=== PATIENT | male | born 1950 | race Caucasian/White ===

== ENCOUNTER → 2024-07-18 | Outpatient (CLI) | payer OTHER, SELFPAY ==
--- NOTE | 2024-07-18 07:30 | PROSBIL_PTH ---
PATIENT: REGGIE VIZCAINOT #:[id number] LOC: [facility] U#:[id number] AGE/SX: 73/M ROOM: RE07/18/[address]: Dr. Kory Vance MD : 1950 BED: DIS: 07/18/2024 SPEC #: [id number] RECD: 07/18/24 14:50 STATUS: KYLEE RETyler #: [id number] SAUL: 07/18/24 07:[address]: Kory Vance DEPT: SURGICAL PATHOLOGY RECD BY: León Culp ENTERED: 07/18/24 15:15 SP TYPE: PROST BX OT DR: Lucy [facility] Phys Tissues: A - PROSTATE RIGHT B - PROSTATE RIGHT C - PROSTATE RIGHT D - PROSTATE LEFT E - PROSTATE LEFT F - PROSTATE LEFT Procedures: PROSTATE BX Immunohistochemical Stains HEADER OPERATION: Ultrasound guided prostate biopsy PRE-OP DIAGNOSIS: Elevated PSA, family history of malignant neoplasm of prostate TISSUE SUBMITTED: A - Right base, B - Right mid, C - Right apex, D - Left base, E - Left mid, F - Left apex MICROSCOPIC DIAGNOSIS A. Prostate, right base, biopsy: * Benign prostate tissue. B. Prostate, right mid, biopsy: * Benign prostate tissue. C. Prostate, right apex, biopsy: * Benign prostate tissue. D. Prostate, left base, biopsy: * Benign prostate tissue. E. Prostate, left mid, biopsy: * Benign prostate tissue. F. Prostate, left apex, biopsy: * Focal atypical small acinar proliferation, suspicious for adenocarcinoma. * IHC for [id number] supports the histologic impression. MICROSCOPIC DESCRIPTION Slides are reviewed. All matched controls reacted appropriately. These tests were developed and their performance characteristics determined by [facility]. They may not have been cleared or approved by the U.[place]. Food and Drug Administration. The FDA has determined that such clearance or approval is not necessary.? The above immunohistochemical/dualISH?markers are ordered and reviewed by the Pathologist. GROSS DESCRIPTION A. Received in formalin in a container labeled with the patient's name, date of , and #1 right prostate base are 2 white and wispy core biopsies of soft tissue measuring 0.9 x 0.1 cm and 1.2 x 0.1 cm. Submitted in toto in A1. B. Received in formalin in a container labeled with the patient's name, date of , and #2 right prostate mid are 2 white and wispy core biopsies of soft tissue measuring 1.4 x 0.1 cm and 2.0 x 0.1 cm. Submitted in toto in B1. C. Received in formalin in a container labeled with the patient's name, date of , and #3 right prostate apex are 3 white and wispy core biopsies of soft tissue ranging from 0.7 x 0.1 cm to 1.5 x 0.1 cm. Submitted in toto in C1. D. Received in formalin in a container labeled with the patient's name, date of , and #4 left prostate base are 2 white and wispy core biopsies of soft tissue measuring 1.0 x 0.1 cm and 2.0 x 0.1 cm. Submitted in toto in D1. E. Received in formalin in a container labeled with the patient's name, date of , and #5 left prostate mid are 2 white and wispy core biopsies of soft tissue each measuring 1.7 x 0.1 cm. Submitted in toto in E1. F. Received in formalin in a container labeled with the patient's name, date of , and #6 left prostate apex are 2 white and wispy core biopsies of soft tissue each measuring 1.8 x 0.1 cm. Submitted in toto in F1. [facility] 07-18-2024 CPT:45693z3, 27020
== END | disposition home or self-care (01) ==
LOC: LABSPEC 14:59
PROVIDERS: Referring Provider Urology; Visit Provider Urology
DX: R97.20 Elevated prostate specific antigen [PSA] (principal); Z80.42 Family history of malignant neoplasm of prostate
CPT/HCPCS: 88305; 88342; G0416

== ENCOUNTER → 2024-10-21 | Outpatient (CLI) | payer SELFPAY, OTHER ==
--- NOTE | 2024-10-21 10:51 | MRI_ITS ---
EXAM: PELVIS W/WO CONTRAST 10/21/2024 CLINICAL HISTORY: ELEVATED PSA ANTIGEN. TECHNIQUE: Procedure Code: [id number] Modality: MR Procedure: PELVIS W/WO CONTRAST Multiplanar and multisequence images were obtained without and with intravenous gadolinium contrast. CONTRAST: Clariscan VOLUME: 17 mL COMPARISON: None FINDINGS: Image quality:Diagnostic PSA:22.7ng/mL Prostate size: 4 x 4.6 x 4.7cms Prostate volume: 42.39mL PSA density:0.535 ng/mL??? Prostate: Peripheral zone: Normal in signal. Bandlike T2 signal abnormalities without any restricted diffusion or abnormal pattern of enhancement. Transitional zone: Target lesion: Focal T2 hypointense mass with restricted diffusion involving the left transitional anatomy both anterior and posterior zones extending from the base to the apex and measuring 3.4 by 2.2 x 1.5 centimeters. Restricted diffusion with drop in signal on ADC map present. Equivocal enhancement of the lesion noted. PI-RADS: PI-RADS 5: very high (clinically significant cancer is highly likely to be present) Extra prostatic extension: Subtle T2 hyperintense nodule in the left cortex of the prostate with increase T2 signal on diffusion-weighted images with corresponding drop in signal on ADC map but no abnormal enhancement. This is concerning for extra prostatic extension of disease. Seminal vesicles: Normal. Neurovascular involvement: None. Lymphadenopathy: No lymphadenopathy. Bladder: Normal. Osseous structures: Normal. Gastrointestinal: Diverticulosis. No active diverticulitis. Soft tissues: There is a large left inguinal hernia containing loops of sigmoid colon. Diverticulosis noted. MRI/Pelvis W/WO Contrast IMPRESSION: 3.4 centimeter mass with involving the left transitional zone from base to apex with possible left prostatic extra capsular extension. No lymphadenopathy. No involvement of the neurovascular bundle. PI-RADS: PI-RADS 5: very high (clinically significant cancer is highly likely t o be present) Reading Location: [id number]
== END | disposition home or self-care (01) ==
PROVIDERS: PCP Student in an Organized Health Care Education/Training Program; Referring Provider Urology; Visit Provider Urology
DX: R97.20 Elevated prostate specific antigen [PSA] (principal)
CPT/HCPCS: 72197; A9575; A4216

== ENCOUNTER → 2024-11-28 | Outpatient (CLI) | payer OTHER, SELFPAY ==
--- NOTE | 2024-11-28 07:30 | PROSBIL_PTH ---
PATIENT: REGGIE VIZCAINOT #:[id number] LOC: [facility] U#:[id number] AGE/SX: 74/M ROOM: RE11/28/[address]: Dr. Kory Vance MD : 1950 BED: DIS: 11/28/2024 SPEC #: [id number] RECD: 12/01/24 08:44 STATUS: KYLEE RETyler #: [id number] SAUL: 11/28/24 07:[address]: Kory Vance DEPT: SURGICAL PATHOLOGY RECD BY: Yara Burr ENTERED: 12/01/24 08:45 SP TYPE: PROST BX OT DR: Karen Felder MD Tissues: A - PROSTATE RIGHT B - PROSTATE RIGHT C - PROSTATE RIGHT D - PROSTATE LEFT E - PROSTATE LEFT F - PROSTATE LEFT Procedures: PROSTATE BX Immunohistochemical Stains HEADER OPERATION: Prostate biopsy PRE-OP DIAGNOSIS: Elevated prostate specific antigen TISSUE SUBMITTED: A - Right base, B - Right mid, C - Right apex, D - Left base, E - Left mid, F - Left apex MICROSCOPIC DIAGNOSIS A. Prostate, right, base, biopsy: * Benign prostatic tissue (See note) Note: Immunohistochemical staining shows positive basal cell staining without AMACR supporting the diagnosis. B. Prostate, right, mid, biopsy: * Benign prostatic tissue C. Prostate, right, apex, biopsy: * Focal atypical small acinar proliferation (See note) Note: Immunohistochemical staining shows positive AMACR without basal cell staining supporting the diagnosis. D. Prostate, left, base, biopsy: * Benign prostatic tissue E. 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 F. 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 GROSS DESCRIPTION Received in 6 formalin containers labeled with the patient's name and date of . Designated as: A. "Right prostate base" are 2 coburn tissue cores, 1.3 cm and 2.1 cm in length by 0.1 cm in diameter. Entirely submitted in 1 cassette. B. "Right prostate mid" are 4 coburn tissue cores, 0.5 cm to 1.8 cm in length by 0.1 cm in diameter. Entirely submitted in 1 cassette. C. "Right prostate apex" are 2 coburn tissue cores, 1.3 cm and 1.8 cm in length by 0.1 cm in diameter. Entirely submitted in 1 cassette. D. "Left prostate base" are 2 coburn tissue cores, each 1.6 cm in length by 0.1 cm in diameter. Entirely submitted in 1 cassette. E. "Left prostate mid" are 3 coburn tissue cores, 1.6 cm to 1.9 cm in length by 0.1 cm in diameter. Entirely submitted in 1 cassette. F. "Left prostate apex" are 3 coburn tissue cores, 1.7 cm to 1.8 cm in length by 0.1 cm in diameter. Entirely submitted in 1 cassette. [place] 12/01/2024 CPT:60563g9,41680s5
== END | disposition home or self-care (01) ==
LOC: LABSPEC 15:04
PROVIDERS: PCP Student in an Organized Health Care Education/Training Program; Referring Provider Urology; Visit Provider Urology
DX: R97.20 Elevated prostate specific antigen [PSA] (principal)
CPT/HCPCS: 88305; 88342; G0416

== ENCOUNTER → 2024-12-18 | Outpatient (CLI) | payer OTHER, SELFPAY ==
[2024-12-18 13:59] LABS: PSA,Total- Diagnostic 19.90 ng/mL (0.00-4.00)
== END | disposition home or self-care (01) ==
LOC: LAB 12:01
PROVIDERS: PCP Student in an Organized Health Care Education/Training Program; Referring Provider Urology; Visit Provider Urology
DX: R97.20 Elevated prostate specific antigen [PSA] (principal)
CPT/HCPCS: 36415; 84153

== ENCOUNTER → 2024-12-30 | Outpatient (CLI) | payer SELFPAY, OTHER ==
--- NOTE | 2024-12-30 07:30 | PET_ITS ---
PROCEDURE: PET/CT TUMOR BASE -THIGH INIT 12/30/2024 REASON FOR EXAM: 74 y/o M with PYLARIFY. TECHNIQUE: Procedure Code: PETPTCTINIT Modality: PT Procedure: PET/CT TUMOR BASE -THIGH INIT Following the intravenous administration of radionucleotide, image acquisition on a dedicated PET/CT unit was performed at one hour post injection. A preliminary CT study encompassing the Head, neck, chest, abdomen, pelvis, and proximal thighs was performed for purposes of attenuation correction and anatomic localization. The proximal thighs were also included. RADIOPHARMACEUTICAL: 9.209 mCi Pylarify (Piflufolastat F18) - Prostate Specific Membrane Agent - IV was injected into he patient. RADIATION DOSE SUMMARY: Effective Dose: Approximately 7 mSv for a standard whole-body PET scan Organ Doses: Varies by organ, with higher doses typically to the bladder, liver, and brain COMPARISON: COMPARISON FROM CT, PET OR OTHER PERTINENT EXAMS: MRI pelvis 10/21/2024.. FINDINGS: Physiologic uptake: There may be expected metabolic uptake within the brain, tongue and floor of the mouth and larynx/vocal cords, heart, jania (many normal individuals have hilar uptake in less than 3 nodes with mildly avid hilar nodes less than 2.7 SUV), liver and spleen, system, and GI tract and symmetric muscle uptake. FDG AVID AND NON-AVID LESIONS. Reported avid SUV values (g/mL*) are maximum SUV. NECK: There are no significant neck abnormalities. CHEST: Chest wall- There are no significant chest wall abnormalities. Axilla- There are no significant axillary abnormalities. Lung parenchyma- There are no significant lung parenchyma abnormalities. Mediastinum- There are no significant hilar or mediastinal adenopathy. Pleura- There are no significant pleural abnormalities. ABDOMEN: Prior cholecystectomy. Stomach- No significant abnormalities. Liver- No significant abnormalities. Spleen- No significant abnormalities. Pancrease- No significant abnormalities. Kidneys- No significant abnormalities. Bowel- Normal bowel activity. Spine- No significant abnormalities. PELVIS: A large left inguinal hernia is seen, containing both fat and bowel. Central to left prostate gland uptake is seen, consistent with prostate malignancy. SUV max is 12.7. Bowel- Normal physiologic bowel activity is identified. Masses- There are no other pelvic masses. Bones- Degenerative changes of the spine are most prominent at the mid to lower lumbar spine. Thoracolumbar dextroscoliosis is also noted. With the use of bone window settings, there are no osteolytic or osteoblastic lesions. There are no FDG avid lesions within the visualized portion of the axial skeleton. PET/PET/CT Tumor Base -Thigh Init IMPRESSION: FDG avid- Hypermetabolic focus of the central to left prostate, consistent with prostate malignancy. No additional focus of abnormal activity is seen. Other: 1. A large left inguinal hernia is seen, containing both fat and bowel. 2. Degenerative changes of the spine are most prominent at the mid to lower lum bar spine. Thoracolumbar dextroscoliosis is also noted. 3. Prior cholecystectomy. Please note the low-dose CT scan was performed to facilitate PET image reconstr uction and anatomic localization and does not replace a diagnostic CT. Any diagnostic CT requested and performed at the time of the PET will be reported separately. Reading Location: [place] [id number]
== END | disposition home or self-care (01) ==
PROVIDERS: PCP Student in an Organized Health Care Education/Training Program; Referring Provider Urology; Visit Provider Urology
DX: C61 Malignant neoplasm of prostate (principal)
CPT/HCPCS: 78815; A9595

== ENCOUNTER 2025-01-21 05:51 | Day surgery (SDC) | payer OTHER, SELFPAY ==
--- NOTE | 2025-01-14 14:43 | PAT.ANESEVAL ---
Pre-Assessment Diagnosis/Proposed Procedure Planned Operative Procedure(s): Lap Robotic Prostatectomy (L) Lap Robotic Inguinal Hernia Anesthesia History Anesthesia History - electrophysiology scientist: Anesthesia History - electrophysiology scientist Hx Hospitalization Yes: PNEUMONIA 01/14/25 10:30 Any Problems With Anesthesia No 01/14/25 10:30 Cholinesterase deficiency No 01/14/25 10:30 You/Your Family Experience No 01/14/25 10:30 fever (hyperthermia) with Relationship Recent Exposure to Contagious Disease Does patient have nerve No 01/14/25 10:30 stimulator Patient instructed to have device shut off --Does patient have Pacemaker or ICD? When Was Last Pacemaker Check QUESTION #4 FULL TEXT: You/Your Family Experience fever (hyperthermia) with Anesthesia Last Oral Intake Last Oral intake: Last Oral Intake NPO since Meds taken in AM with sips of water? Meds patient instructed to take am of surgery PONV PONV - electrophysiology scientist: PONV - electrophysiology scientist Female No 01/14/25 10:30 HX of Motion Sickness No 01/14/25 10:30 HX of N/V After Surgery No 01/14/25 10:30 Non-Smoker Yes 01/14/25 10:30 Duration of Surgery greater No 01/14/25 10:30 than 60 minutes Number of Risk Factors 1 01/14/25 10:30 PONV Score Low Risk 01/14/25 10:30 Height & Weight Height & Weight: Anesthesia: Height & Weight Height 5 ft 5 in 12/23/24 10:54 Respiratory Assessment Respiratory Assessment - electrophysiology scientist: Respiratory Tract Infection Hx - electrophysiology scientist Hx Respiratory Tract Infection No 01/14/25 10:30 STOP Sleep Apnea STOP Sleep Apnea - electrophysiology scientist: STOP Sleep Apnea - electrophysiology scientist Hx Hypertension Yes: CONTROLLED ON MED 01/14/25 10:30 Hx Sleep Apnea Yes 01/14/25 10:30 CPAP No 01/14/25 10:30 BIPAP Yes 01/14/25 10:30 Do you snore loudly (louder than talking or can be heard Do you often feel tired/ fatigued/ sleepy during daytime? Has anyone observed you stop breathing during sleep? STOP Results Positive 01/14/25 10:30 QUESTION #5 FULL TEXT : Do you snore loudly (louder than talking or can be heard through closed doors)? Tobacco Use History Tobacco Use History - electrophysiology scientist: Tobacco Use History - electrophysiology scientist Tobacco Use Smoking Status Former smoker 01/14/25 10:30 Hx Tobacco Use No 01/14/25 10:30 Years Smoking Packs Smoked per Day Smoking Cessation Date was No - quit smoking greater 01/14/25 10:30 within the last 15 years than 15 years ago Hx Smoking Cessation Date Hx Smoking Cessation Counseling Hematologic Medial History Hematologic Hx - electrophysiology scientist: Hematologic Medical Hx - maintenance electrician Hx of Blood Transfusion No 01/14/25 10:30 Hx of Transfusion in last 3 No 01/14/25 10:30 Months Date of Last Transfusion (if within last 3 months) Ever experience any problems No 01/14/25 10:30 with transfusion(s)? Specify any problems Hx of Preganancy in last 3 N/A 01/14/25 10:30 Months Nurse Filling Out Transfusion VCHRISTIN 01/14/25 10:30 & Questions: Date: 01/14/25 01/14/25 10:30 Time: 10:31 01/14/25 10:30 Patient unable to answer at this time (ie. confused, unrespo /Reproduction History /Reproductive History - electrophysiology scientist: /Reproductive Hx- electrophysiology scientist Hx Now No 01/14/25 10:30 Gestational Age (in weeks): EDC: Hx Hx Para Hx Section SAB No 01/14/25 10:30 Does the father of the baby or his family experience fever w Father of the baby Malignant Hypertension history comment [facility] Medical History (Updated 01/14/25 @ 11:48 by Ainsley Rodrigez) History of stress test History of echocardiogram Wears dentures Wears glasses History of steroid therapy Diabetes Arthritis Kidney stones Gastric reflux Former smoker BiPAP (biphasic positive airway pressure) dependence Sleep apnea COPD (chronic obstructive pulmonary disease) Shortness of breath on exertion Chronic cough History of edema Asthma Urinary calculus Diabetes type 2 Polyuria Nocturia Hypertension Emphysema lung Anxiety Elevated PSA Prostate cancer Home Medications ?Medication ?Instructions ?Recorded ?Last Taken ?Type aspirin 81 mg tablet 81 mg PO QDAY BLOOD THINNER 12/18/24 01/13/25 History metformin 500 mg tablet 1,000 mg PO QDAY DIABETES 12/18/24 Unknown History furosemide 20 mg tablet (Lasix) 20 mg PO Q OTHER DAY edema 12/23/24 Unknown History albuterol sulfate 2.5 mg/3 mL 1 mg continuous nebulization BID 01/14/25 Unknown History (0.083 %) solution for nebulization COPD fluticasone fur. 200 mcg-umeclid 1 inh inhalation DAILY COPD 01/14/25 Unknown History 62.5 mcg-vilant 25 mcg inhalat.powder (Trelegy Ellipta) losartan 100 mg tablet 100 mg PO DAILY BP 01/14/25 Unknown History montelukast 10 mg tablet 10 mg PO DAILY ALLERGIES 01/14/25 Unknown History sertraline 50 mg tablet 50 mg PO DAILY ANXIETY 01/14/25 Unknown History Allergy/AdvReac Type Severity Reaction Status Date / Time No Known Allergies Allergy Verified 01/14/25 10:13 Surgical History Hx of prostate biopsy Hx of cholecystectomy History of back surgery Social History Smoking Status: Former smoker alcohol intake: never substance use type: does not use Audit: Pertinent Findings Pertinent Findings EKG Perinent findings: 04/08/2024. Normal sinus rhythm 82 bpm. T wave abnormality, consider inferior ischemia. T wave abnormality, consider anterior ischemia. EKG June 16, 2024 shows normal sinus rhythm [address] and T wave abnormality consider inferior ischemia. Stress test pertinent findings: 02/23/2020. Indication chest pain. No evidence of reversible ischemia. EF 62%. No regional wall motion hypokinesis. Echo (EF%) pertinent findings: 04/23/2024. Indication acute CHF. EF 55 to 60%. Normal wall motion. Aortic valve mildly calcified. At most mild aortic valve stenosis visually. Right pulmonary artery pressure 85 mmHg. Suggests severe pulmonary hypertension. EK G noted at baseline prior to stress test. To show abnormal baseline T wave abnormalities in the inferior and anterior leads. Recommendation Anesthesia Recommendation Anesthesia recommendation: OPTIMIZED for anesthesia
[2025-01-15 10:54] LABS: Anion Gap 9 (5-15); BUN 23 mg/dL (4-19); BUN/Creat Ratio 24.2 RATIO (10-20); Calcium,Total 9.9 mg/dL (7.6-11.0); Carbon Dioxide 34.2 mmol/L (21.0-32.0); Chloride 101 mmol/L (98-108); Glucose 105 mg/dL (70-99); Potassium 4.1 mmol/L (3.3-5.1)
[2025-01-21] VITALS (21 sets, daily range): BP systolic 91–137; BP diastolic 46–85; PULSE 55–71; RESP 12–18; TEMP 36.2–36.7; O2SAT 84–99; BMI 30.8
[2025-01-21] MEDS: Lactated Ringers 1,000 ML 15 ML IV (06:52)
--- NOTE | 2025-01-21 07:07 | PCM.PRE.AN2 ---
ASA Classification* ASA Classification ASA Classification: 3 Assessment & Plan Anesthesia* Anesthesia Assessment Anesthesia Assessment: Discussed sedation and/or anesthesia options, risks, benefits, and alternatives with patient/parents/legal guardian/POA. Questions invited. The patient/parents/legal guardian/POA seems to understand and agrees to proceed with anesthesia plan. Reviewed the physical assessment, medical history, allergy history and patient home medications list prior to surgery/procedure/anesthetic and documented any changes. Performed airway and anesthesia risk assessments. Anesthesia Type Anesthesia Type: General History Source History Obtained from:: Patient and Chart (< 4 mets) Anesthesia Focused Assessment* Temperature: 97.9 F Pulse Rate: 58 Blood Pressure: 137/76 Respiratory Rate: 16 Pulse Ox: 98 Oxygen Delivery Method: Room Air Airway Assessment Mouth opens: >3 cm Mallampati Score: II Teeth Condition: Missing Labs Anesthesia Preop lab: CBC CHEMISTRY Potassium, (3.3-5.1) 4.1 mmol/L 01/15/25, 09:54 Sodium, (133-145) 145 mmol/L 01/15/25, 09:54 BUN, (4-19) 23 mg/dL H 01/15/25, 09:54 Creatinine, (0.70-1.20) 0.93 mg/dL 01/15/25, 09:54 Glucose, (70-99) 105 mg/dL H 01/15/25, 09:54 POC Glucose, (74-106) 128 mg/dL H Today, 06:30 COAG Pre-Assessment Diagnosis/Proposed Procedure Planned Operative Procedure(s): Lap Robotic Prostatectomy (L) Lap Robotic Inguinal Hernia Anesthesia History Anesthesia History - svp research and strategic analysis: Anesthesia History - svp research and strategic analysis Hx Hospitalization Yes: PNEUMONIA 01/14/25 10:30 Any Problems With Anesthesia No 01/14/25 10:30 Cholinesterase deficiency No 01/14/25 10:30 You/Your Family Experience No 01/14/25 10:30 fever (hyperthermia) with Relationship Recent Exposure to Contagious No 01/21/25 06:34 Disease Does patient have nerve No 01/14/25 10:30 stimulator Patient instructed to have device shut off --Does patient have Pacemaker No 01/21/25 06:34 or ICD? When Was Last Pacemaker Check QUESTION #4 FULL TEXT: You/Your Family Experience fever (hyperthermia) with Anesthesia Last Oral Intake Last Oral intake: Last Oral Intake NPO since 20:30 01/21/25 06:34 Meds taken in AM with sips of Yes 01/21/25 06:34 water? Meds patient instructed to take am of surgery PONV PONV - svp research and strategic analysis: PONV - svp research and strategic analysis Female No 01/14/25 10:30 HX of Motion Sickness No 01/14/25 10:30 HX of N/V After Surgery No 01/14/25 10:30 Non-Smoker Yes 01/14/25 10:30 Duration of Surgery greater No 01/14/25 10:30 than 60 minutes Number of Risk Factors 1 01/14/25 10:30 PONV Score Low Risk 01/14/25 10:30 Height & Weight Height & Weight: Anesthesia: Height & Weight Height 5 ft 5 in 01/21/25 06:34 Weight: 84 kg 01/21/25 06:34 Body Mass Index (BMI) 30.8 01/21/25 06:34 Respiratory Assessment Respiratory Assessment - svp research and strategic analysis: Respiratory Tract Infection Hx - svp research and strategic analysis Hx Respiratory Tract Infection No 01/14/25 10:30 STOP Sleep Apnea STOP Sleep Apnea - svp research and strategic analysis: STOP Sleep Apnea - svp research and strategic analysis Hx Hypertension Yes: CONTROLLED ON MED 01/14/25 10:30 Hx Sleep Apnea Yes 01/14/25 10:30 CPAP No 01/14/25 10:30 BIPAP Yes 01/14/25 10:30 Do you snore loudly (louder than talking or can be heard Do you often feel tired/ fatigued/ sleepy during daytime? Has anyone observed you stop breathing during sleep? STOP Results Positive 01/14/25 10:30 QUESTION #5 FULL TEXT : Do you snore loudly (louder than talking or can be heard through closed doors)? Tobacco Use History Tobacco Use History - svp research and strategic analysis: Tobacco Use History - svp research and strategic analysis Tobacco Use Smoking Status Former smoker 01/14/25 10:30 Hx Tobacco Use No 01/14/25 10:30 Years Smoking Packs Smoked per Day Smoking Cessation Date was No - quit smoking greater 01/14/25 10:30 within the last 15 years than 15 years ago Hx Smoking Cessation Date Hx Smoking Cessation Counseling Hematologic Medial History Hematologic Hx - svp research and strategic analysis: Hematologic Medical Hx - supervisor sample Hx of Blood Transfusion No 01/14/25 10:30 Hx of Transfusion in last 3 No 01/14/25 10:30 Months Date of Last Transfusion (if within last 3 months) Ever experience any problems No 01/14/25 10:30 with transfusion(s)? Specify any problems Hx of Preganancy in last 3 N/A 01/14/25 10:30 Months Nurse Filling Out Transfusion VCHRISTIN 01/14/25 10:30 & Questions: Date: 01/14/25 01/14/25 10:30 Time: 10:31 01/14/25 10:30 Patient unable to answer at this time (ie. confused, unrespo /Reproduction History /Reproductive History - svp research and strategic analysis: /Reproductive Hx- svp research and strategic analysis Hx Now No 01/14/25 10:30 Gestational Age (in weeks): EDC: Hx Hx Para Hx Section SAB No 01/14/25 10:30 Does the father of the baby or his family experience fever w Father of the baby Malignant Hypertension history comment Active Medications Active Medications: Current Medications Generic Name Dose Route Start Last Admin Trade Name Freq PRN Reason Stop Dose Admin Cefazolin Sodium 2 gm/ Sodium 110 mls @ 200 mls/hr 01/21/25 07:00 Chloride IV 01/21/25 07:32 INTRAOP ONE Lactated Ringer's 1,000 mls @ 15 mls/hr 01/21/25 06:15 01/21/25 06:52 IV 15 mls/hr .Q48H MARQUISE Administration PFSH Medical History History of stress test History of echocardiogram Wears dentures Wears glasses History of steroid therapy Diabetes Arthritis Kidney stones Gastric reflux Former smoker BiPAP (biphasic positive airway pressure) dependence Sleep apnea COPD (chronic obstructive pulmonary disease) Shortness of breath on exertion Chronic cough History of edema Asthma Urinary calculus Diabetes type 2 Polyuria Nocturia Hypertension Emphysema lung Anxiety Elevated PSA Prostate cancer Home Medications ?Medication ?Instructions ?Recorded ?Last Taken ?Type metformin 500 mg tablet 1,000 mg PO QDAY DIABETES 12/18/24 01/20/25 History furosemide 20 mg tablet (Lasix) 20 mg PO Q OTHER DAY edema 12/23/24 01/20/25 History albuterol sulfate 2.5 mg/3 mL 1 mg continuous nebulization BID 01/14/25 01/20/25 History (0.083 %) solution for nebulization COPD fluticasone fur. 200 mcg-umeclid 1 inh inhalation DAILY COPD 01/14/25 01/21/25 History 62.5 mcg-vilant 25 mcg inhalat.powder (Trelegy Ellipta) losartan 100 mg tablet 100 mg PO DAILY BP 01/14/25 01/21/25 History montelukast 10 mg tablet 10 mg PO DAILY ALLERGIES 01/14/25 01/20/25 History sertraline 50 mg tablet 50 mg PO DAILY ANXIETY 01/14/25 01/20/25 History Allergy/AdvReac Type Severity Reaction Status Date / Time No Known Allergies Allergy Verified 01/21/25 06:32 Surgical History Hx of prostate biopsy Hx of cholecystectomy History of back surgery Social History Smoking Status: Never smoker alcohol intake: never substance use type: does not use Addt'l Information Additional Findings: NS EKG. Patient has <4 mets Review of Systems (Anesthesia) ROS Narrative System reviewed and no additional complaints, except as documented. Physical Exam Const alert and oriented x3 HEENT Teeth and Gingiva: dentures and edentulous Neck General: normal visual inspection and trachea midline Resp normal respiratory effort and normal air movement Auscultation: clear to auscultation bilaterally Cardio regular rate and regular rhythm Back/Spine normal ROM Skin Rashes: no rashes Neuro oriented x3 and moves all extremities
--- NOTE | 2025-01-21 08:00 | SOF_PTH ---
PATIENT: REGGIE VIZCAINO LOC: [facility] [place] U#:[id number] AGE/SX: 74/M ROOM: RE01/21/[address]: Dr. Kory Vance MD : 1950 BED: DIS: 01/24/2025 SPEC #: [id number] RECD: 01/21/25 13:33 STATUS: KYLEE RETyler #: [id number] SAUL: 01/21/25 08:[address]: Kory Vance DEPT: SURGICAL PATHOLOGY RECD BY: León Culp ENTERED: 01/21/25 15:57 SP TYPE: SOFT TISS OTHR DR: MD Karen Ocampo MD Tissues: A - Soft tissues, NOS B - Prostate, NOS Procedures: Immunohistochemical Stains Surgery Specimen Level IV Surgery Specimen Level HEADER OPERATION: Laparoscopic robotic inguinal hernia repair with mesh, laparoscopic robotic radical prostatectomy PRE-OP DIAGNOSIS: Left incarcerated inguinal hernia, malignant neoplasm of prostate, elevated PSA TISSUE SUBMITTED: A- Fat over prostate, B- Prostate MICROSCOPIC DIAGNOSIS A. Soft tissue, prostate, excision: Mature adipose, negative for malignancy. B. Prostate, radical prostatectomy: - Adenocarcinoma Amairani score 3+3=6 (Greade group 1), involving right and left prostate from apex to base, approximately 40% of the tissue. - Tumor involves the base margin with focal extra-prostatic extension and microscopic involvement of the bladder neck. - pT3a, pNX. - Seminal vesicles and vas deferens are negative for malignancy; IHC for PIN4 (B23) supports the histologic impression. - See synoptic report. SYNOPTIC REPORT FOR CARCINOMA OF THE PROSTATE: Procedure:?RADICAL PROSTATECTOMY Histologic type:?ACINAR Amairani score:?3+3=6 Grade group (1-5):?1 % pattern 4 in Amairani 3+4=7 (na=not applicable):?NA % tumor:?approximately 40% ? Tumor extent (n=no, y=yes, na=not applicable):?Extraprostatic extension (f=focal, m=multifocal):?F ? Location of extraprostatic extension:?base ?? Microscopic invasion of bladder neck:?Y ?? Seminal vesicle muscle wall invasion:?N ? Margins of main specimen (n=negative, p=positive, na=not applicable):?P ?? Distance of tumor to closest margin (cm):?at margin ?? Longest contiguous positive margin (cm):?1.4 cm ?? Positive margin location:?base ? Regional lymph nodes (na=not applicable): ?? Number examined:?0 ?? Number positive:?NA ? Additional findings (cribriform glands, intraductal carcinoma, lymphovascular invasion, therapy effect):?perineural invasion pTNM:?pT3a NX Comments:?NONE ? Grade Group Definitions 1=Amairani 5-6,?2=Franklin 3+4=7;?3=Amairani 4+3=7,?4=Franklin 8;?5=Amairani 9-10 ? Pathologic Staging Definitions (pTNM) Primary Tumor (pT) pT2:? Organ confined pT3a:??? Extraprostatic extension (focal is <1 high power field in 1-2 slides, multifocal is more) or Microscopic invasion of bladder neck (in thick muscle, no adjacent non-neoplastic glands) pT3b:??? Seminal vesicle muscle wall invasion pT4:? Invasion of external sphincter, rectum, bladder, levator muscles or pelvic wall Regional Lymph Nodes (pN) (periprostatic, pelvic, hypogastric, obturator, fossa of Marcille, internal iliac, external iliac, sacral) pNX:? Cannot be assessed pN0:? No regional lymph node metastasis pN1:? Regional lymph node metastasis Distant Metastasis (pM) pM1a:?? Metastasis in non-regional lymph node (ex: aortic, common iliac, caval, deep inguinal, superficial inguinal, retroperitoneal) pM1b:?? Metastasis in bone pM1c:?? Metastasis in other distant site ? The above synoptic report complies, in slightly modified form, with the guidelines of the [employer] and the Association of Directors of Anatomic and Surgical Pathology for the reporting of cancer specimens MICROSCOPIC DESCRIPTION Slides are reviewed. GROSS DESCRIPTION Received in 2 formalin containers labeled with the patient's name and date of . Designated as: A. Fat over prostate is a 3.8 x 2.8 x 0.4 cm portion of coburn-yellow focally congested lobulated adipose tissue. Entirely submitted in 2 cassettes. B. Prostate is a 44.6 g radical prostatectomy with attached bilateral adnexa, measuring 4.8 (LR) x 4.2 (AP) x 4.2 (AB) cm. Capsular defects are not grossly present. The specimen is inked as follows: Left: GreenRight: BluePosterior: BlackAnterior: [place] The specimen is serially sectioned from apex to base to coburn slices revealing coburn-pink to yellow, rubbery and nodular parenchyma with a 0.3 x 0.3 x 0.2 cm coburn-white, well-circumscribed apparent lesion within slice #1, involving the right apex. The left and right seminal vesicles/vasa deferentia measure as follows:Left vas deferens: 1.7 x 0.3 cmLeft seminal vesicle: 1.8 x 1.0 x 0.5 cmRight vas deferens 2.2 x 0.4 cmRight seminal vesicle: 2.0 x 1.3 x 0.4 cm Adjuster Piano Action sections are submitted, sequentially from apex to base as follows:Slice #1, apical margin, radially sectioned, entirely submitted: B1-B2: LeftB3-B4: RightSlice #2, apex, 50% submitted: B5: LeftB6: RightSlice #3, mid, entirely submitted: B7: Left, posteriorB8: Left, anteriorB9: Right, [id number]: Right, anteriorSlice #4, mid, 50% submitted: B11: Left, [id number]: Left, anterior Slice #6, base, 50% submitted: B13: Left, [id number]: Left, anterior Slice #7, base, 50% submitted:B15: LeftSlice #9, base margin, perpendicular, entirely submitted: B16-B17: [id number]: [id number]: Left/rightAdnexa, account services representative: B21: Left and right vasa deferentia, margin, [id number]: Left and right vasa deferentia, [id number]: Left seminal vesicle with [id number]: Right seminal vesicle with insertion CA 01/22/2025 CPT:89620,78210,56209
[2025-01-21] MEDS: Lidocaine 1% (5 ml sdv) 5 ML Vial IV (08:39)
[2025-01-21] MEDS: Cefazolin 1 GM/5 ML Vial 2 GM IV (09:00)
--- NOTE | 2025-01-21 10:14 | OP.PCM_ITS ---
Operative Report (Standard) Operative Information Date of Procedure: 01/21/25 Pre-Operative Diagnosis: Left incarcerated inguinal hernia Post-Operative Diagnosis: Left incarcerated inguinal hernia Surgery/Procedure Performed: Robotic assisted laparoscopic left inguinal hernia repair with mesh paint spray tender: Yes Repair Service Clerk: Earl Ovalle Tasks completed by carpenter assistant: Opening & closing Type of Anesthesia: General/Regional RN Documented Start/Stop Times: Operation Date: 01/21/25 08:00 Case Time Into Pre-Op 01/21/25 06:05 Out of Pre-Op 01/21/25 08:27 Anesthesia Start 01/21/25 08:30 Into Room 01/21/25 08:30 Procedure Start 01/21/25 09:06 Procedure Start Time: 09:06 Procedure Stop Time: 10:15 Select all DRAINS/GRAFTS/IMPLANTS that apply: Implanted device Implanted device details: ProGrip mesh in the left inguinal region Estimated Blood Loss: 5 Specimen collected: No Description of surgery: Patient was brought back to the operating room and general anesthesia was induced. The abdomen was prepped and draped in usual sterile fashion. Patient was placed in lithotomy position. Dr. Vance entered the abdomen and placed ports and docked the robot. The colon was reduced as much as possible and the adhesions to the hernia sac were taken down. Next an incision was made in the peritoneum in the left lower quadrant. Dissection was carried into the hernia sac was encountered. The hernia sac was reduced. This included the contents. Once the hernia sac was completely reduced the adhesions to the colon were taken down. Next a piece of ProGrip mesh was placed over the hernia defect completely covering the defect with good overlap. Next the peritoneum was reapproximated using a running 3 oh V-Loc suture completely covering the mesh. After this Dr. Vance took back over to perform his prostatectomy. Surgical Findings: Incarcerated left inguinal hernia containing colon Complications Complications: No Admit VTE Documentation VTE Mechan Device Prophylaxis: SCD's
[2025-01-21] MEDS: fentaNYL 100 MCG/2 ML Ampul 200 MCG IV (12:36)
--- NOTE | 2025-01-21 12:42 | OP.PCM_ITS ---
Operative Report (Standard) Operative Information Date of Procedure: 01/21/25 Pre-Operative Diagnosis: Prostate cancer Post-Operative Diagnosis: The same Surgery/Procedure Performed: Robotic radical prostatectomy hydraulic punch press operator: Yes Sheep Sticker: Earl Ovalle Tasks completed by mate first: Opening, Closing, Opening & closing, Harvesting grafts, Dissecting tissue, Removing tissue, Implanting device, Altering tissue, Insert Trochanter, Hemostasis: Clamp, Hemostasis: Tie, Hemostasis: Electrocautery, Trocar, Retracting and Other Type of Anesthesia: General RN Documented Start/Stop Times: Operation Date: 01/21/25 08:00 Case Time Into Pre-Op 01/21/25 06:05 Out of Pre-Op 01/21/25 08:27 Anesthesia Start 01/21/25 08:30 Into Room 01/21/25 08:30 Procedure Start 01/21/25 09:06 Procedure Start Time: 09:06 Procedure Stop Time: 12:42 Select all DRAINS/GRAFTS/IMPLANTS that apply: Drains Drain details: 18 Citizen Of [place] Gill catheter Estimated Blood Loss: 400 cc Specimen collected: Yes Description of specimen(s) removed: Prostate and fat over prostate Description of surgery: Patient presented to the hospital for treatment of his prostate cancer with radical prostatectomy. In the preoperative setting we discussed the options of management for his prostate cancer including active surveillance, radiation treatments, radioactive seeds, and radical robotic prostatectomy. We discussed the side effects of surgery including the potential to lose erections. We discussed the potential to have bladder control problems with stress incontinence which can be temporary or permanent. We discussed the risk of the surgery including the risk of general anesthetic, risk of bleeding, risk of infection, and risk of formation of hernia either incisional hernia or inguinal hernia. After long discussion with the patient the preoperative setting and also reviewed this in the preop area patient signed the consent form and we proceeded with a radical prostatectomy. Patient was taken back to the operating room he was identified, time out procedure was performed and he was placed supine on the table he underwent general anesthesia with intubation. The abdomen was shaved prepped and draped in usual sterile fashion as well as the penis and testicles. A 16 Citizen Of [place] catheter was placed into the bladder with clear return of urine. I then made an incision in the umbilicus and dissected down to the fascia advance a Veress needle into the peritoneal cavity and insufflated the peritoneal cavity with CO2 gas. I then placed a 12 mm trocar above the umbilicus. I then visualized the placement of the rest of the trochars, I placed a right arm robotic trocar, and air seal trocar, a suction port 5 mm trocar. And on the left side I placed 2 robotic arms. Once all the trochars were in placed the patient was put in steep Trendelenburg. And the robot was docked the arms were docked and then I placed the 0 degree camera through the robotic arm and also used a 30 degree camera during certain parts of the case. I used scissors in the right arm, prograsp in the third arm, and a bipolar in the second arm. Initial dissection was to free the sigmoid colon off the lateral wall this was done by meticulously dissecting off the peritoneum and the sigmoid colon off the left lateral wall. This then allowed the prograsp to retract the sigmoid colon out of the pelvis. I then went below the bladder and identified the vas deferens incised the peritoneum over the vas deferens and traced the vas deferens below the bladder to the pros taylor and identified the right and left vasa deferens. Below behind the vas deferens then the seminal vesicles were identified. I then dissected the seminal vesicle free using pinpoint electrocautery and then we identified the other seminal vesicle and then dissected this using pinpoint electrocautery I then elevated the vas deferens and several vesicles off the prostate and was able to sweep the Denonvilliers' fascia off the prostate posteriorly all the way up to the apex of the prostate. Working laterally I made sure I went as lateral as possible to sweep the Denonilliers' fascia off the posterior aspect of the prostate and worked my way back, I then transected the vas deferens and the left and right side the seminal vesicles were then dissected free. And then I pulled out of the pelvis. At this point the bladder was dropped creating the space of Retzius with the bladder on traction with the fourth arm. Using electrocautery I dissected in the anterior peritoneal fascia and then created the space of Retzius dissecting towards the prostate. See General surgeon notes for hernia repair. The prostate was then cleaned of the fat over the prostate and the fourth arm was used to retract the bladder and place traction. I then identified the endopelvic fascia that was overlying the prostate on the right side I incised endopelvic fascia and wwept the levator muscles off the prostate all the way to the apex on the right side, I then worked my way anterior to the prostate then transected to the puboprostatic ligament and the underlying dorsal vein complex was not injured. I then went to the other side and identified the endopelvic fascia in the left side incised in a fashion the left side and swept the levator muscles off the prostate on the left side all the way up to the apex the puboprostatic ligament on the left side was then dissected and transected I then freed up the fascia overlying the dorsal vein complex. I then used the prograsp to encircled the dorsal vein complex with the prograsp and then switched over to the right and left needle jinriksha driver and suture ligated the dorsal vein complex above the prograsp. The prograsp was then placed back in the bladder and put back on traction I then identified the junction between the bladder and the prostate and dissected down between the bladder and the prostate untilI came across the catheter we then dissected posteriorly to the bladder and prostate to free the prostate and the bladder off each other and the muscles between the bladder and the prostate was then cauterized to free up the bladder. I then we nt on top of the prostate and identified the endopelvic fascia on top of the prostate this was incised all the way to the apex and then we swept the endopelvic fascia off the prostate laterally and then identified the plane between endopelvic fascia and the prosthetic pseudocapsule and swept the fascia laterally until reaching the course of the neurovascular bundles and then released the neurovascular bundles off the prostate laterally all the way back in a retrograde fashion back to the junction of the pedicles then the prostate was placed on traction with the fourth arm pulling the prostate laterally identified the pedicle to the prostate between the seminal vesicles and the and the neurovascular bundle and this was taken using sequential small hemolocks. After the pedicle was taken the I then dissected underneath the prostate sweeping the neurovascular bundle off the prostate we able to follow the nice smooth plane between the neurovascular bundle and the pseudocapsule all the way to the apex once this was identified we swept this up all the way up to the apex and there was perfect nerve sparing on the right side. Then went to the left side the prostate identified the endopelvic fascia over the left side of the prostate I incised the endopelvic fascia all the way to the apex and then swept this off laterally I then released the neurovascular bundles on the left side of the prostate sweeping him off the prostate laterally I then elevated the prostate up up with the prostate and traction identified the pedicle to the prostate on the left side and then the pedicles taken with sequential Hem-o-dl clips I then was able to dissected the neurovascular bundle off the left posterior aspect the prostate this was a perfect dissection all the way up on the left side following the pseudocapsule all the way up the left side until we reached the apex of the prostate. After the both the neurovascular bundles has been swept off the posterior to the prostate I then went above and transected the dorsal vein complex there was minimal to no bleeding but then dissected down to the urethra and circumfencial dissected around the urethra I then switched the right and left arm with the needle drivers and I suture-ligated the dorsal vein complex again just to ensure that there was no bleeding from the dorsal vein complex. I then transected through the urethra with scissors and the prostate was then freed and released off the prostate bed and put an Endo Catch bag. At this point the bladder neck was reconstructed and then an anastomosis was performed between the prostate and the bladder with a 3 oh V-Loc stitch in a running fashion starting from the bladder neck at the 6 o'clock position working to the 12 o'clock position with continuous stitches to complete a perfect a nastomosis between the bladder and the prostate. I then placed a new catheter into the bladder, an 18 Citizen [place] tip catheter flushed the bladder and there was no leakage from the anastomosis I put 10 cc in the balloon and pulled it up pulled back gently. I then ensured that there was no bleeding from the dorsal vein complex no bleeding from the neurovascular bundles FloSeal was placed as necessary once hemostasis was ensured and adequate then I placed the bladder back in position in the pelvis the prostate was exchanged to the camera port I closed the air seal port with a 10 12 Sarwat Rodríguez stitch. And the extracted the prostate through the umbilicus. The robot was undocked all the ports were removed under direct visualization then closed the extraction site with 0 Vicryl with a CT1 needle once the extraction site was closed. I then closed all the incision with subcuticular stitches with 4-0 Monocryl and then bandages were placed on the incisions catheter was flushed to make sure it was draining well there was no clots and it was crystal clear patient's anesthetic was reversed he was extubated and taken back to the PACU in stable condition all the needles and sponges and instruments were accounted for. Blood loss was minimal and the drain was a 18 Citizen [place] Gill catheter. No other surgical drain was left. I was present during the entire case. The role of the first aid instructor PASTE WORKER, assisted with myself during the entire procedure, the PASTE WORKER assisted by passing instruments through the air seal port, passing suture, needles, sponges during the surgery. The RFA also assisted with providing some suction using the suction irrigation and some irrigation during the surgery. Also the refinery operator assistant provided some traction minorly during the dissection of the prostate and the seminal vesicles. The RFA also helped me extract the prostate at the end of the case and helped close the fascia, and the refinery operator assistant also helped close the skin incisions with subcuticular stitches. The refinery operator assistant was monitored closely and under my direct supervision the entire case. Surgical Findings: Perfect nerve-sparing on both sides, hernia repair done by general surgery Complications Complications: No Admit VTE Documentation VTE Present on Admission: No VTE Mechan Device Prophylaxis: SCD's VTE Pharm Prophylaxis ordered?: No
--- NOTE | 2025-01-21 13:04 | PCM.POST.ANE ---
Anesthesia: Postop Eval I Current Vital Signs Temperature: 98 F Pulse Rate: 61 Blood Pressure: 112/46 Respiratory Rate: 18 Pulse Ox: 93 (4L Nasal cannula) Assessment Airway patent: Yes Spontaneous unlabored respirations: Yes nausea: No Vomiting: No Anesthesia Complication: No Fluid Hydration Crystalloid volume administer (ml): 1,300 Total IV fluid infused: 1,300 Progress Note Anesthesia document: Postop Eval 1 completed: Yes
[2025-01-21] MEDS: Lactated Ringers 1,000 ML 999 ML IV (14:29)
--- NOTE | 2025-01-21 14:30 | POSTOPAN2_ITS ---
Anesthesia Postop Eval I Sum Postop Eval Completion status Anesthesia document: Postop Eval 1 completed: Yes Anesthesia Postop Eval I Summary Anesthesia Postop Eval I Summary: Anesthesia Postop Eval I: Assessment Summary Airway patent Yes 01/21/25 13:04 SAND SCREENER OPERATOR.CSIR Spontaneous unlabored Yes 01/21/25 13:04 SAND SCREENER OPERATOR.CSIR respirations Mental status nausea No 01/21/25 13:04 SAND SCREENER OPERATOR.CSIR Vomiting No 01/21/25 13:04 SAND SCREENER OPERATOR.CSIR Anesthesia Postop Eval I: Fluid Summary Crystalloid volume administer 1,300 01/21/25 13:04 SAND SCREENER OPERATOR.CSIR (ml) Colloids volume administered ( ml) Blood Product volume administered (ml) Total IV fluid infused 1,300 01/21/25 13:04 SAND SCREENER OPERATOR.CSIR Anesthesia Postop Eval I: Summary Notes Anesthesia Complication No 01/21/25 13:04 SAND SCREENER OPERATOR.CSIR Anesthesia Complication Comment: Post-operative progress note Anesthesia: Postop Eval II Evaluation Mental status: Awake and Calm Pain Level: 4 nausea: No Vomiting: No Complications Anesthesia Complication: No
--- NOTE | 2025-01-21 14:30 | PCM.POSTANE2 ---
Anesthesia Postop Eval I Sum Postop Eval Completion status Anesthesia document: Postop Eval 1 completed: Yes Anesthesia Postop Eval I Summary Anesthesia Postop Eval I Summary: Anesthesia Postop Eval I: Assessment Summary Airway patent Yes 01/21/25 13:04 SUPERVISOR INSTRUMENT MAINTENANCE.CSIR Spontaneous unlabored Yes 01/21/25 13:04 SUPERVISOR INSTRUMENT MAINTENANCE.CSIR respirations Mental status nausea No 01/21/25 13:04 SUPERVISOR INSTRUMENT MAINTENANCE.CSIR Vomiting No 01/21/25 13:04 SUPERVISOR INSTRUMENT MAINTENANCE.CSIR Anesthesia Postop Eval I: Fluid Summary Crystalloid volume administer 1,300 01/21/25 13:04 SUPERVISOR INSTRUMENT MAINTENANCE.CSIR (ml) Colloids volume administered ( ml) Blood Product volume administered (ml) Total IV fluid infused 1,300 01/21/25 13:04 SUPERVISOR INSTRUMENT MAINTENANCE.CSIR Anesthesia Postop Eval I: Summary Notes Anesthesia Complication No 01/21/25 13:04 SUPERVISOR INSTRUMENT MAINTENANCE.CSIR Anesthesia Complication Comment: Post-operative progress note Anesthesia: Postop Eval II Evaluation Mental status: Awake and Calm Pain Level: 4 nausea: No Vomiting: No Complications Anesthesia Complication: No
[2025-01-21] MEDS: 0.9% Normal Saline (1000mL) 1,000 ML 125 ML IV ×2 (15:26→21:44)
[2025-01-21 16:33] LABS: Hematocrit 40.8 % (40-54); Hemoglobin 13.5 g/dL (13.0-16.5); Immature Granulocytes Count 0.070 X10^3/uL (0.0-0.0); Mean Corp Hgb Conc 33.1 g/dL (32-36); Mean Corpuscular Volume 89.5 fL (80-94); Mean Platelet Vol. 9.0 fl (6.2-12.0); NRBC Flagged by Analyzer 0 % (0-5); POSITIVE DIFFERENTIAL YES; Platelet Count 157 K/mm3 (150-450); RBC Distribution Width CV 12.6 % (11.6-14.6); RBC Distribution Width SD 41.4 fl (35.1-43.9); Red Blood Count 4.56 M/mm3 (4.6-6.2); White Blood Count 14.3 K/mm3 (4.4-11.0)
[2025-01-21 16:57] LABS: Anion Gap 12 (5-15); BUN 23 mg/dL (4-19); BUN/Creat Ratio 24.9 RATIO (10-20); Calcium,Total 8.9 mg/dL (7.6-11.0); Carbon Dioxide 28.1 mmol/L (21.0-32.0); Chloride 101 mmol/L (98-108); Estimated Creatinine Clearance 70.54 ml/min (50-250); Glucose 191 mg/dL (70-99); Potassium 3.8 mmol/L (3.3-5.1)
[2025-01-21] MEDS: metFORMIN (XR) 500 MG Tablet 1000 MG PO (17:27)
[2025-01-21] MEDS: 0.9 % NaCl (Sterile) Posiflush 10 mL IV (17:28)
[2025-01-21] MEDS: Budesonide Respules 0.5 MG/2 ML AMPUL.NEB. INHALATION (19:53)
[2025-01-21] MEDS: 0.9% Saline Lock 10 ML Syringe IV (21:43)
[2025-01-22] VITALS (16 sets, daily range): BP systolic 92–125; BP diastolic 62–75; PULSE 54–68; RESP 16–18; TEMP 36.3–37; O2SAT 78–99
[2025-01-22] MEDS: 0.9% Normal Saline (1000mL) 1,000 ML 125 ML IV (05:48)
[2025-01-22] MEDS: Budesonide Respules 0.5 MG/2 ML AMPUL.NEB. INHALATION ×2 (07:20→19:56)
--- NOTE | 2025-01-22 07:29 | PN.URO_ITS ---
Subjective Subjective s/p hernia repair and rad. prostatectomy doing well heplock ivf reg diet ambulate may be home today this afternoon w mcdaniels. mcdaniels care teaching. Objective Data Objective Data Vital Signs: Vital Signs Temp Pulse Resp BP Pulse Ox O2 Del Method O2 Flow Rate 98.2 F 54 L 16 116/63 99 Nasal Cannula 2 01/22/25 05:05 01/22/25 05:05 01/22/25 05:05 01/22/25 05:05 01/22/25 05:05 01/22/25 05:05 01/22/25 05:05 Oxygen Flow Rate (L/min) 2 Oxygen Delivery Method Nasal Cannula Weight: 84 kg Body Mass Index (BMI) 30.8 Intake & Output: Intake and Output for Last 24 Hours 01/20/25 01/21/25 01/22/25 23:59 23:59 23:59 Intake Total 4172.5 / 4172.5 1000 / 1000 Output Total 875 / 1125 550 / 550 Balance 3297.5 / 3047.5 450 / 450 Lab / Micro Data 01/21/25 16:12 01/21/25 16:12 Labs: Laboratory Results - last 24 hr 01/21/25 16:12: WBC 14.3 H, RBC 4.56 L, Hgb 13.5, Hct 40.8, MCV 89.5, MCH 29.6, MCHC 33.1, RDW Std Deviation 41.4, RDW Coeff of Savita 12.6, Plt Count 157, MPV 9.0, Immature Gran % (Auto) 0.500, Neut % (Auto) 91.5 H, Lymph % (Auto) 3.5 L, [place] % (Auto) 4.3, Eos % (Auto) 0.0, Baso % (Auto) 0.2, Absolute Neuts (auto) 13.1 H, Absolute Lymphs (auto) 0.50 L, Nucleated RBC % 0, Sodium 141, Potassium 3.8, Chloride 101, Carbon Dioxide 28.1, Anion Gap 12, BUN 23 H, Creatinine 0.93, Estim Creat Clear Calc 70.54, Est GFR (MDRD) Non-Af 87, BUN/Creatinine Ratio 24.9 H, Glucose 191 H, Calcium 8.9
[2025-01-22] MEDS: Furosemide 20 MG/2 ML VIAL 10 MG IV (12:26)
--- NOTE | 2025-01-22 14:53 | CASEMGMT ---
CELY LOCKE into Pt room, Pt resting in bed and Pt sitting at bedside. Pt awoke, CELY LOCKE discussed DC planning needs with them. Pt and Pt both stated they were aware Pt will be going home with a mcdaniels catheter and feel comfortable with catheter care. Pt lives with his and adult son and daughter. They also have 2 daughters that live close by that are able to assist if needed. Pt states he has a walker and cane at home. They deny any DC needs at this time. CELY LOCKE notified CELY LOCKE on floor.
[2025-01-22] MEDS: metFORMIN (XR) 500 MG Tablet 1000 MG PO (16:16)
[2025-01-23] VITALS (11 sets, daily range): BP systolic 112–146; BP diastolic 65–81; PULSE 61–72; RESP 16–20; TEMP 36.5–37.1; O2SAT 87–99
[2025-01-23] MEDS: Budesonide Respules 0.5 MG/2 ML AMPUL.NEB. INHALATION ×2 (07:05→19:52)
[2025-01-23 08:23] LABS: Hematocrit 34.1 % (40-54); Hemoglobin 11.0 g/dL (13.0-16.5); Immature Granulocytes Count 0.030 X10^3/uL (0.0-0.0); Mean Corp Hgb Conc 32.3 g/dL (32-36); Mean Corpuscular Volume 90.9 fL (80-94); Mean Platelet Vol. 9.1 fl (6.2-12.0); NRBC Flagged by Analyzer 0 % (0-5); Platelet Count 133 K/mm3 (150-450); RBC Distribution Width CV 12.8 % (11.6-14.6); RBC Distribution Width SD 42.6 fl (35.1-43.9); Red Blood Count 3.75 M/mm3 (4.6-6.2); White Blood Count 9.2 K/mm3 (4.4-11.0)
[2025-01-23 09:06] LABS: Anion Gap 6 (5-15); BUN 22 mg/dL (4-19); BUN/Creat Ratio 24.0 RATIO (10-20); Calcium,Total 9.1 mg/dL (7.6-11.0); Carbon Dioxide 30.8 mmol/L (21.0-32.0); Chloride 102 mmol/L (98-108); Estimated Creatinine Clearance 72.89 ml/min (50-250); Glucose 152 mg/dL (70-99); Potassium 3.9 mmol/L (3.3-5.1)
--- NOTE | 2025-01-23 12:43 | PN.URO_ITS ---
Subjective Subjective doing well but still on O2 probably home tomorrow wean off O2 Objective Data Objective Data Vital Signs: Vital Signs Temp Pulse Resp BP Pulse Ox O2 Del Method O2 Flow Rate 97.8 F 65 18 112/65 92 Room Air 2 01/23/25 08:52 01/23/25 08:52 01/23/25 08:52 01/23/25 08:52 01/23/25 11:49 01/23/25 11:49 01/23/25 08:53 Oxygen Flow Rate (L/min) 2 Oxygen Delivery Method Room Air Weight: 84 kg Body Mass Index (BMI) 30.8 Intake & Output: Intake and Output for Last 24 Hours 01/21/25 01/22/25 01/23/25 23:59 23:59 23:59 Intake Total 4172.5 / 4172.5 2166.67 / 2166.67 Output Total 875 / 1125 800 / 800 1350 / 1350 Balance 3297.5 / 3047.5 1366.67 / 1366.67 -1350 / -1350 Lab / Micro Data 01/23/25 08:05 01/23/25 08:05 Labs: Laboratory Results - last 24 hr 01/23/25 08:05: WBC 9.2, RBC 3.75 L, Hgb 11.0 L, Hct 34.1 L, MCV 90.9, MCH 29.3, MCHC 32.3, RDW Std Deviation 42.6, RDW Coeff of Savita 12.8, Plt Count 133 L, MPV 9.1, Immature Gran % (Auto) 0.300, Neut % (Auto) 77.6 H, Lymph % (Auto) 13.4 L, [place] % (Auto) 7.5, Eos % (Auto) 0.8, Baso % (Auto) 0.4, Absolute Neuts (auto) 7.1, Absolute Lymphs (auto) 1.23, Nucleated RBC % 0, Sodium 138, Potassium 3.9, Chloride 102, Carbon Dioxide 30.8, Anion Gap 6, BUN 22 H, Creatinine 0.90, Estim Creat Clear Calc 72.89, Est GFR (MDRD) Non-Af 90, BUN/Creatinine Ratio 24.0 H, G lucose 152 H, Calcium 9.1
[2025-01-23] MEDS: metFORMIN (XR) 500 MG Tablet 1000 MG PO (17:22)
[2025-01-24 02:12] VITALS: BP 124/66; PULSE 58; RESP 16; TEMP 36.9; O2SAT 97
[2025-01-24 07:12] VITALS: PULSE 68; RESP 20; O2SAT 96
[2025-01-24] MEDS: Budesonide Respules 0.5 MG/2 ML AMPUL.NEB. INHALATION (07:12)
[2025-01-24 08:01] VITALS: BP 120/67; PULSE 63; RESP 18; TEMP 37.2; O2SAT 94
--- NOTE | 2025-01-24 09:12 | DS.PCM_ITS ---
Providers Date of Discharge: 01/24/25 Primary Care Physician: Karen Felder MD Reason For Visit: Lap Robotic Prostatectomy Medications at Discharge Home Medications metformin 500 mg tablet 1,000 mg PO QDAY DIABETES 12/18/24 furosemide 20 mg tablet (Lasix) 20 mg PO Q OTHER DAY edema 12/23/24 albuterol sulfate 2.5 mg/3 mL (0.083 %) solution for nebulization 1 mg continuous nebulization BID COPD 01/14/25 fluticasone fur. 200 mcg-umeclid 62.5 mcg-vilant 25 mcg inhalat.powder (Trelegy Ellipta) 1 inh inhalation DAILY COPD 01/14/25 losartan 100 mg tablet 100 mg PO DAILY BP 01/14/25 montelukast 10 mg tablet 10 mg PO DAILY ALLERGIES 01/14/25 sertraline 50 mg tablet 50 mg PO DAILY ANXIETY 01/14/25 ciprofloxacin HCl 500 mg tablet 500 mg PO BID #20 tabs 01/21/25 docusate sodium 100 mg capsule (Colace) 100 mg PO BID #20 caps 01/21/25 oxycodone 5 mg tablet 5 mg PO Q6H PRN pain 7 days #14 tabs 01/21/25 Hospital Course Summary of Care Provided Minutes Spent on Discharge: 30 Hospital Course: 74-year-old male who underwent a hernia repair with mesh and robotic radical prostatectomy discharged home on postoperative day #3 in stable condition he has low oxygenation levels but this is stable on room air he is like 92% he does take a CPAP machine at night he denies any shortness of breath or chest pain has been active ambulating tolerating regular food cerumen discharging home today follow-up in my office in 2 weeks for removal of the Gill catheter Physical Exam Const alert and oriented x3 General Appearance: cooperative HEENT normocephalic and head/scalp atraumatic Eyes PERRL and EOMs intact bilaterally Neck supple, no JVD and no carotid bruits Resp normal respiratory effort, normal air movement and clear to auscultation bilaterally Cardio regular rate and no murmurs GI normal to inspection, nondistended, normoactive bowel sounds and soft to palpation Extremity normal capillary refill General Extremity: no tenderness to palpation of joints or extremities; Negative for edema Skin no rashes or lesions noted and no wounds General Skin Exam: no breakdown Neuro CN's II-XII intact bilaterally Psych affect normal Appearance: appropriate Weight / BMI Weight Weight: 84 kg Body Mass Index (BMI) 30.8 ABG / Lab / Microbiology Data 01/23/25 08:05 01/23/25 08:05 D/C Instructions Discharge Activity: Return to Normal Activity and May Not Drive (while taking narcotic pain medications.) Call your doctor if you observe: Fever of 101 or Higher DC O2, CPAP, BIPAP Needs Home O2 Discharge instructions: Yes Type of respiratory needs?: Oxygen Oxygen frequency: With Ambulation Oxygen liters per minute during Ambulation: 2 DC home with Oxygen: Yes Home O2 MD Review: I have reviewed the oxygen testing, and the patient qualifies for home oxygen equipment and portability. The patient is mobile in the home and the community. Please Follow Up With: Kory Vance MD When: Call [phone] for an appointment Meaningful Use Info Meaningful Use Meaningful Use Diagnoses (Choose all that apply): None applicable Discharge Plan Admission Primary Reason for Your Visit: Robotic prostatectomy Attending Provider: Kory Vance Primary Care Provider: Karen Felder Consulting Providers: Barak Muro Instructions Print Language: Estonian Discharge Orders/Prescriptions Prescriptions: New docusate sodium [Colace] 100 mg capsule 100 mg PO BID Qty: 20 0RF ciprofloxacin HCl 500 mg tablet 500 mg PO BID Qty: 20 0RF oxycodone 5 mg tablet 5 mg PO Q6H PRN (Reason: pain) 7 Days Qty: 14 0RF Continued furosemide [Lasix] 20 mg tablet 20 mg PO Q OTHER DAY metformin 500 mg tablet 1,000 mg PO QDAY sertraline 50 mg tablet 50 mg PO DAILY montelukast 10 mg tablet 10 mg PO DAILY losartan 100 mg tablet 100 mg PO DAILY Patient Comments: NEEDS VERIFIED Trelegy Ellipta 200-62.5-25 mcg blister with device 1 inh inhalation DAILY albuterol sulfate 2.5 mg /3 mL (0.083 %) solution for nebulization 1 mg continuous nebulization BID Referrals / Follow Up: Kory Vance MD [Med Staff - Active Staff, Urology] Karen Felder MD [Primary Care Provider, Family Practice] Disposition Disposition (needs filled in before D/C Order can be placed): Home, Self Care
--- NOTE | 2025-01-24 09:15 | DCINST_ITS ---
Discharge Instructions DC O2, CPAP, BIPAP needs Home O2 Discharge instructions: Yes Type of respiratory needs?: Oxygen Oxygen frequency: With Ambulation Oxygen liters per minute during Ambulation: 2 Dressing / Incision Discharge Activity: May Not Drive and May Shower Dressing / Incision Call your doctor if you observe: Fever of 101 or Higher and Uncontrolled pain Suture Line Care: Avoid Pulling/Pushing and Avoid Pinching/Bending Catheter: Gill to leg bag and Gill to large bag Drain: [place] Follow Up Care Please Follow Up With: Kory Vance MD When: Call [phone] for an appointment Test Results: Test results from this visit will be discussed in further detail at your follow- up appointment, if applicable. Discharge Plan Admission Primary Reason for Your Visit: Robotic prostatectomy Attending Provider: Kory Vance Primary Care Provider: Karen Felder Consulting Providers: Barak Muro Instructions Print Language: Sammarinese Discharge Orders/Prescriptions Prescriptions: New docusate sodium [Colace] 100 mg capsule 100 mg PO BID Qty: 20 0RF ciprofloxacin HCl 500 mg tablet 500 mg PO BID Qty: 20 0RF oxycodone 5 mg tablet 5 mg PO Q6H PRN (Reason: pain) 7 Days Qty: 14 0RF Continued furosemide [Lasix] 20 mg tablet 20 mg PO Q OTHER DAY metformin 500 mg tablet 1,000 mg PO QDAY sertraline 50 mg tablet 50 mg PO DAILY montelukast 10 mg tablet 10 mg PO DAILY losartan 100 mg tablet 100 mg PO DAILY Patient Comments: NEEDS VERIFIED Trelegy Ellipta 200-62.5-25 mcg blister with device 1 inh inhalation DAILY albuterol sulfate 2.5 mg /3 mL (0.083 %) solution for nebulization 1 mg continuous nebulization BID Referrals / Follow Up: Kory Vance MD [Med Staff - Active Staff, Urology] Karen Felder MD [Primary Care Provider, Family Practice] Disposition Disposition (needs filled in before D/C Order can be placed): Home, Self Care
--- NOTE | 2025-01-24 10:03 | CASEMGMT ---
Pt's RN states to CM that the pt qualified for home oxygen use. Per the crop farm helper, pt qualifies for 3L with exertion. RN CM to the pt's room at this time. A verbal list of local in-network DME companies were provided to the pt at this time. Pt prefers [employer]. Rx signed by Dr. Vance. Green sheet placed on the pt's chart and DC Readiness checklist intervention completed in [facility]. Pt's RN updated. Pt educated to call [employer] once he gets home so they can deliver the rest of the equipment. Pt states understanding and denies further questions or concerns at this time.
== END 2025-01-24 11:22 | disposition home or self-care (01) ==
LOC: SDC 05:51 → AC 05:52 → MS3 13:02
PROVIDERS: Anesthesiology; Surgery; PCP Student in an Organized Health Care Education/Training Program; Referring Provider Urology; Visit Provider Urology
PROC: 0YQ64ZZ Repair Left Inguinal Region, Percutaneous Endoscopic Approach (ICD-10-PCS; CPT 49650; principal; 2025-01-21 07:40)
PROC: 0VT04ZZ Resection of Prostate, Percutaneous Endoscopic Approach (ICD-10-PCS; CPT 55866; 2025-01-21 07:40)
DX: C61 Malignant neoplasm of prostate (principal); J44.9 Chronic obstructive pulmonary disease, unspecified; E11.9 Type 2 diabetes mellitus without complications; K40.90 Unilateral inguinal hernia, without obstruction or gangrene, not specified as recurrent; I10 Essential (primary) hypertension; K21.9 Gastro-esophageal reflux disease without esophagitis; F41.9 Anxiety disorder, unspecified; G47.30 Sleep apnea, unspecified; Z79.84 Long term (current) use of oral hypoglycemic drugs; Z79.82 Long term (current) use of aspirin; Z79.51 Long term (current) use of inhaled steroids; Z90.49 Acquired absence of other specified parts of digestive tract; Z79.899 Other long term (current) drug therapy; Z87.891 Personal history of nicotine dependence
CPT/HCPCS: 55866; 49650; S2900; 00865; 36415; 80048; 82962; 85025; 86850; 86900; 86901; 88305; 88309; 88342; 94640; 94668; C1781; A4216; J0744; J1938; J2405